=== PATIENT | male | born 1955 | race Caucasian/White ===

== ENCOUNTER 2017-09-10 18:24 | Emergency (ER) | payer MEDICAID ==
[2017-09-10 18:48] VITALS: BP 170/88
== END 2017-09-10 19:28 | disposition left against medical advice (07) ==
LOC: SUPCPDRO 18:24 → JD.ED 18:24
DX: Z53.21 Procedure and treatment not carried out due to patient leaving prior to being seen by health care provider (principal)

== ENCOUNTER 2022-03-07 12:27 | Emergency (ER) | payer MEDICARE, OTHER ==
[2022-03-07 12:38] VITALS: PULSE 80
[2022-03-07] MEDS ORDERED: Lisinopril 20 MG Tab PO ONE (12:47)
[2022-03-07] MEDS ORDERED: Cefdinir 300 MG Cap PO ONE (13:07)
[2022-03-07] MEDS ORDERED: hydrALAZINE 20 MG/ML SDV IM ONE (13:37)
[2022-03-07 14:12] VITALS: BP 192/94
== END 2022-03-07 14:05 | disposition home or self-care (01) ==
LOC: JD.ED 12:27
DX: H66.002 Acute suppurative otitis media without spontaneous rupture of ear drum, left ear (principal); I10 Essential (primary) hypertension; F17.210 Nicotine dependence, cigarettes, uncomplicated; Z88.0 Allergy status to penicillin; Z79.82 Long term (current) use of aspirin; Z79.899 Other long term (current) drug therapy
CPT/HCPCS: 96372; 99283; A9270; J0360; 99284

== ENCOUNTER 2023-01-05 09:00 | Emergency (ER) | payer MEDICARE, OTHER ==
[2023-01-05] MEDS ORDERED: Ondansetron 4 MG/2 ML SDV IVPUSH ONE (10:12)
[2023-01-05] MEDS ORDERED: Lactated Ringers 1,000 ML IV SCH (10:15)
[2023-01-05] MEDS ORDERED: Potassium Chloride 20 MEQ Tab.ER PO ONE (13:09)
[2023-01-05 15:13] VITALS: BP 166/88; PULSE 88
== END 2023-01-05 15:00 | disposition home or self-care (01) ==
LOC: JD.ED 09:00
DX: L03.116 Cellulitis of left lower limb (principal); I10 Essential (primary) hypertension; F17.210 Nicotine dependence, cigarettes, uncomplicated; Z88.0 Allergy status to penicillin; Z79.899 Other long term (current) drug therapy
CPT/HCPCS: 36415; 80053; 80307; 81001; 85025; 85610; 93971; 96361; 96374; 99284; A9270; J2405; J7120

== ENCOUNTER 2023-10-10 11:37 | Emergency (ER) | payer MEDICARE, OTHER ==
[2023-10-10 12:45] LABS: HEMOGLOBIN 16.9 gm/dl (14.0-18.0); MEAN CORPUSCULAR HEMOGLOBIN 30.1 pg (28.0-32.0); MEAN CORPUSCULAR HGB CONC 33.8 g/dl (32.0-36.0); MEAN CORPUSCULAR VOLUME 89.1 fl (83.0-99.0); PLATELET COUNT,PLT 193 K/mm3 (150-400); RED BLOOD CELL COUNT 5.61 M/mm3 (4.52-5.90); WHITE BLOOD CELL COUNT,WBC 6.13 K/mm3 (3.9-11.3)
[2023-10-10 13:17] LABS: A/G RATIO 0.9 (1-2); ALBUMIN 3.1 g/dl (3.4-5.0); ANION GAP 14.4 (5-15); BUN/CREATININE RATIO 12.7 (14-18); CALCIUM 8.4 mg/dL (8.5-10.1); CREATININE 1.1 mg/dL (0.7-1.3); EST CRCL DRUG DOSING (CG) 67.5 mL/min; POTASSIUM,K 3.4 mEq/L (3.5-5.1); PROTEIN TOTAL,TP 6.7 g/dl (6.4-8.2); TSH 2.399 uIU/mL (0.358-3.74)
[2023-10-10 13:48] LABS: BAND PERCENT MAN 0 % (0-10); BASOPHILS PERCENT MAN 0 (0.2-1.2); EOSINOPHILS PERCENT MAN 4 % (0.8-7.0); LYMPHOCYTES % ATYPICAL MANUAL 0 %; LYMPHOCYTES PERCENT MAN 37 % (20-40); MONOCYTES PERCENT MAN 0 % (2-10)
[2023-10-10 13:49] LABS: PLATELET COUNT ESTIMATE ADEQUATE
[2023-10-10 16:34] LABS: BARBITURATE SCREEN,URINE NEGATIVE (CUTOFF=200); BENZODIAZEPINES SCREEN,URINE NEGATIVE (CUTOFF=150); BUPRENORPHINE SCREEN,URINE NEGATIVE (CUTOFF=10); METHADONE SCREEN, URINE NEGATIVE (CUT0FF=200); METHAMPHETAMINES SCREEN, URINE PRESUMPTIVE POSITIVE (CUTOFF=500); OXYCODONE SCREEN,URINE NEGATIVE (CUT0FF=100); THC SCREEN,URINE 20 NG/ML NEGATIVE (CUTOFF=50)
[2023-10-10 16:37] LABS: AMPHETAMINES SCREEN, URINE PRESUMPTIVE POSITIVE (CUTOFF=500)
[2023-10-10 19:52] VITALS: BP 134/82; PULSE 86
== END 2023-10-10 19:52 | disposition other institution (70) ==
LOC: JD.ED 11:37
DX: F32.A Depression, unspecified (principal); F15.10 Other stimulant abuse, uncomplicated; I10 Essential (primary) hypertension; F17.210 Nicotine dependence, cigarettes, uncomplicated; Z79.899 Other long term (current) drug therapy; Z88.0 Allergy status to penicillin
CPT/HCPCS: 36415; 70450; 70450-26; 70551; 70551-26; 80053; 80143; 80179; 80306; 80307; 84443; 85007; 85027; 93005; 93010; 93971-26-LT; 93971-LT; 99282; 99285

== ENCOUNTER 2025-08-02 16:03 | Emergency (ER) | payer OTHER, MEDICAID ==
[2025-08-02 16:58] LABS: BASOPHILS ABSOLUTE AUTO 0.1 K/mm3 (0.0-0.2); BASOPHILS PERCENT AUTO 0.7 % (0.0-1.0); EOSINOPHILS ABSOLUTE AUTO 0.1 K/mm3 (0.0-0.4); EOSINOPHILS PERCENT AUTO 1.4 % (0.0-6.0); IMMATURE GRAN ABSOLUTE AUTO 0.01 K/mm3 (0.00-0.05); IMMATURE GRAN PERCENT AUTO 0.1 % (0.0-0.4); LYMPHOCYTES ABSOLUTE AUTO 1.6 K/mm3 (1.0-4.8); LYMPHOCYTES PERCENT AUTO 23.2 % (24.0-44.0); MEAN PLATELET VOLUME 9.9 fl (9.4-12.4); MONOCYTES ABSOLUTE AUTO 0.7 K/mm3 (0.0-0.8); MONOCYTES PERCENT AUTO 9.5 % (0.0-8.0); NEUTROPHILS ABSOLUTE AUTO 4.5 K/mm3 (1.8-7.7); NEUTROPHILS PERCENT AUTO 65.1 % (41.0-71.0); NRBC ABSOLUTE 0.00 (0.00-0.02); NRBC PERCENT 0.0 % (0.0-0.2); PLATELET COUNT,PLT 144 K/mm3 (150-400); RED BLOOD CELL COUNT 5.84 M/mm3 (4.52-5.90); WHITE BLOOD CELL COUNT,WBC 6.94 K/mm3 (3.9-11.3)
[2025-08-02 17:17] LABS: A/G RATIO 1.1 (1-2); ALANINE AMINOTRANSFERASE,ALT 22 U/L (16-63); ASPARTATE AMNIOTRANSFERASE,AST 21 U/L (15-37); BILIRUBIN TOTAL 0.5 mg/dL (0.2-1.0); BLOOD UREA NITROGEN,BUN 20 mg/dL (7-18); CARBON DIOXIDE,CO2 27 mEq/L (21-32); CHLORIDE,CL 104 mEq/L (98-107); CREATININE 1.2 mg/dL (0.7-1.3); ESTIMATED GFR 65 mL/min (>60); GLUCOSE RANDOM 92 mg/dL (70-99); POTASSIUM,K 3.0 mEq/L (3.5-5.1); PROTEIN TOTAL,TP 7.1 g/dl (6.4-8.2); SODIUM,NA 141 mEq/L (136-145)
[2025-08-02] MEDS: Sodium Chloride 0.9% 10 ML Syringe FLUSH PRN (18:07)
[2025-08-02] MEDS: Iopamidol 612 MG/ML 100 ML Bottle IVPUSH ONE (18:07)
[2025-08-02 19:19] VITALS: BP 144/79; PULSE 66
== END 2025-08-02 19:01 | disposition home or self-care (01) ==
LOC: JD.ED 16:03
DX: S31.114A Laceration without foreign body of abdominal wall, left lower quadrant without penetration into peritoneal cavity, initial encounter (principal); F17.200 Nicotine dependence, unspecified, uncomplicated; I10 Essential (primary) hypertension; Z79.899 Other long term (current) drug therapy; Z88.0 Allergy status to penicillin; W26.0XXA Contact with knife, initial encounter
CPT/HCPCS: 12001; 36415; 74177; 80053; 85025; 99284; J2003; Q9967